=== PATIENT | female | born 1985 ===

== ENCOUNTER 2023-08-23 13:38 | Outpatient (CLI) | payer BC, MEDICAID, SELFPAY ==
--- NOTE | 2023-08-23 16:10 | W.PM.LAC.MC ---
Consult Note - Mom Date of Visit Date of visit: 08/23/23 media consultant: Milly Restrepo Visit Code: Visit Patient's Information Phone number: [phone] : 3 Para: 3 Work Plans: returns to work in three weeks Delivery Information Delivery type: Vaginal Weeks Gestation: term Gestational Age: AGA Baby's Information Baby's Age at Visit: 6 weeks Baby's Provider or Clinic: Dr. Alecia Mckeon Reason for Consult Reason for Consult: concern for supply Past Experience Past Experience: Yes (had trouble with supply for her two older children) Current Frequency of Day Feedings: every 2.5 - 3 hours Frequency of Night Feedings: every 3 - 4 hours Both Breasts: Yes Suck: fairly strong Latch: wide Length of Time: about 15 minutes total Pumping Pumping: No Supplementing EMB Supplement: No Formula Supplement: Yes (four ounces 2 - 4 times/day) Baby Elimination Number of Wet Diapers a Day: has stopped counting Number of BM a Day: has stopped counting Breast/Nipple Condition Breast Information: WNL Maternal Nipple Condition - Left: Common Nipple Maternal Nipple Condition - Right: Common Nipple Onsite Pre-Feed weight: 4.622 kg Post-Feed weight: 4.644 kg Milk Transferred (mL): 22 Assessments/Interventions Assessments/Interventions: Met with mom and this now 6 week old ex- term AGA baby for consult. Mom reports he has hx of slow weight gain and has become increasingly fussier at the breast. She had trouble with her supply when she nursed her two older children and she's concerned that may be the issue now. States baby is nursing every 2.5 - 4 hours, she offers both sides and the session lasts about 15 minutes. Overnight baby is usually content, but during the day she supplements with four ounces 2 - 4 times/day. She has pumped about 4 times since baby was born but said that each time she only got about 15 ml and it was very discouraging so I just stopped. Breasts WNL- symmetrical with rounded lower quadrants, intramammary distance < 1.5 inches. Nipples are everted and don't flatten or retract on compression, no damage noted. Mom denies any breast changes during and didn't really feel any fullness or engorgement when her milk came in. She denies any medical hx that would put her at risk for low supply. Baby has gained 29 grams/day since his last weight check at [facility] on 08/14. Mom reports he has equal ROM when turning his head and moving his extremities. His palate, upper frenulum, and lower frenulum all appear to be WNL. He has a fairly strong suck on a finger, but the tongue doesn't extend over the gum line consistently. The tongue does have good lateral movement. Mom latched baby to the left side and he had a wide latch, taking in all of the areola; lips were flanged and mom was comfortable. He nursed for 7 - 10 minutes before he stated to get fussy, no improvement with breast compression. Mom switched him to the right side and again he had a wide latch and mom was comfortable. He nursed about 5 minutes before getting agitated and starting to cry. He was weighed and had transferred 22 ml. Mom offered the breast one more time, but he kept pushing away. He was given 4 oz formula, she did a good job with paced feeding. Plan: 1. Continue to nurse him with every feeding, suggested she try breast compression, it wasn't that successful at this feeding, but she may have success with it during future feedings. OK to switch sides or stop when he gets frustrated. 2. Supplement after feeding when he still seems hungry like she has been. Reviewed babies his age need 4 - 5 oz usually around 8 times/24 hours. 3. We discussed trying some herbs that may increase her supply, but she would also need to add in extra stimulation with pumping (and keep nursing as well). Suggested she try a few herbs from [employer] and she thought she could pump 4 times/day. Encourage her to try this for at least a week after she had started the supplement. She was measured and a flange size suggested. 4. Will f/u with mom at [facility] on 07/30/23.
== END 2023-08-23 13:39 | disposition home or self-care (01) ==
LOC: OB LAC 13:43
PROVIDERS: PCP Family Medicine; Visit Provider Family Medicine
DX: Z39.1 Encounter for care and examination of lactating mother (principal)
CPT/HCPCS: G0463

== ENCOUNTER 2025-02-03 15:16 | Outpatient (CLI) | payer MEDICAID, SELFPAY ==
--- NOTE | 2025-02-04 13:29 | P.LACCB_ITS ---
Consult Note - Mom Date of Visit Date of visit: 02/03/25 Reason for consultation: Assistance Needed and Low Milk Supply (history of low milk supply with first 3 children) Visit Code: Visit Patient's Information Phone number: [phone] Para: 4 Work Plans: home with children Delivery Information Gestational Age: 38 Gestational Weight For Age: AGA Weight: 2.75 kg Baby's Information Baby's Age at Visit: 4 weeks 1 day Baby's Provider or Clinic: [facility] Jaundice: No Past Experience Past Experience: Yes (has tried with all 3 children) Current Frequency of Day Feedings: every 2-4 hours Frequency of Night Feedings: 3-4 hours Both Breasts: Yes Suck: strong Latch: wide, deep, comfortable Length of Time: 10-15 min ea side Goals: as long as possible Pumping Pumping: No (tried one, got absolutely nothing so has not pumped again) Quantity Pumped: has not worked in the past either Supplementing EBM Supplement: No Formula Supplement: Yes (2 oz every other feeding or if she acts hungry after BFing) Baby Elimination Number of Wet Diapers a Day: ea feeding Number of BM a Day: 1x/day Breast/Nipple Condition Breast Information: Breasts are symmetrical with rounded lower quadrants, intramammary distance is less than 1.5 inches. No erythema. Nipples are supple, everted prior to feeding. She denies any medical hx that would put her at risk for low supply including no surgeries, no difficulty conceiving, no thyroid issues; she did have irregular periods. Breast Shape: Round Engorgement: No Maternal Nipple Condition - Left: Common Nipple Maternal Nipple Condition - Right: Common Nipple Sore Nipples: No Baby Assessment Skin: Normal Tongue/frenulum: Normal/elastic Palate: Average Lips: Relaxed and Symmetrical Jaw Alignment: Symmetrical Mucosa: [place], moist Onsite Observation Pre-Feed weight: 3.064 kg Post-Feed weight: 3.086 kg Milk Transferred (mL): 22 Position: Cross cradle (for left side) and Football (for right side) Attachment/latch-on achieved: Easily Suck pattern: Extended suck phase Swallow: Occasionally Behavior following feed: Alert, content Pre-Nursing Left Nipple: Within Normal Limits Pre-Nursing Right Nipple: Within Normal Limits Post-Nursing Left Nipple: Within Normal Limits Post-Nursing Right Nipple: Within Normal Limits Assessments/Interventions Assessments/Interventions: Met with mom and this 4 week old 38 week AGA baby. Mom reports she has hx of slow weight gain; but mom wonders if she is making more milk with this baby than previous children as she seems more content after some feedings. She had trouble with her supply when she nurses her 3 older children and she's concerned that may be the issue now given the slow weight gain. States baby is nursing every 2- 4 hours, she offers both sides and the sessions last about 10-15 min ea side. She is supplementing with formula if the baby acts hungry after feeding, usually about every other feeding. One feeding/day baby just takes a bottle fo 3-4 oz of formu.a Baby has gained 8 oz in the last 6 days from weights at [facility]. Mom latched baby to her LEFT breast, had a wide, deep latch, taking in all of the areola; lips were flanged and mom was comfortable. She nursed for 10 minutes, mom tried breast compression without any change in the suckling/swal lowing behavior. Baby was weighed: 12 ml transferred. Mom switched her to her right side in football hold; again she had a wide latch and mom was comfortable. She nursed about 7 minutes before slowing her suckles down. Baby was weighed: 10 ml transferred. Total volume transferred: 22 ml Babe seemed content, but was offered 2 oz formula and she drank this down in about 10 minutes and was content. Discussed volume transferred compared to calorie needs. Plan developed with mom: Continue to nurse Ot[facility] with every feeding as desired; keep feedings at the breast to about 10 mi ea side to prevent baby from fatiguing. Supplement after ea feeding; offer 2 oz. If she drinks it all down and still acts hungry, offer another ounce. Mom is not interested in herbs or pumping as this hasn't been successful in the past; given minimal breast changes during and her history agree it might not be helpful. Ok to breastfeed for as many months as she wants as long as she keeps time at the breast shorter to allow for supplement feedings and to supplement with ea feeding. Discussed SNS as an option she could try for supplementing at the breast; tried here in clinic with moderate success (baby was very messy with flow)m but mom will contemplate this option. Will continue to f/u with weights at [facility] and/or [facility]. Education provided: Alternative feeding methods (SNS, cup, finger feeding, bottling) Follow-Up Suggested follow up: Appointment as needed Time Spent Time spent with patient (min): 60
== END 2025-02-03 15:17 | disposition home or self-care (01) ==
PROVIDERS: PCP Family Medicine; Visit Provider Family Medicine
DX: Z39.1 Encounter for care and examination of lactating mother (principal)
CPT/HCPCS: G0463